=== PATIENT | female | born 1970 | race Caucasian/White ===

== ENCOUNTER 2016-11-14 09:39 | Emergency (ER) | payer BC ==
[~2016-11-14] VITALS: Ht 167.6 cm; Wt 90.1 kg
[~2016-11-14 09:39] MED LIST: ALBUTEROL SULF8.5 GM IH; HYDROCODON-ACE1 EAC7 PO; KEFLEX500 MG PO; LEVAQUIN500 MG PO; MEDROL DOSEPAK4 MG PO; MUCINEX PO; NAPROXEN500 MG PO; TUSSIONEX PENN473 ML PO
[2016-11-14] MEDS ORDERED: PREDNISONE10 MG PO (12:37)
[2016-11-14] MEDS ORDERED: ULTRAM50 MG PO (12:37)
[2016-11-14 12:49] VITALS: BP 124/78
== END 2016-11-14 12:45 | disposition home or self-care (01) ==
LOC: EME 09:39
DX: M17.12 Unilateral primary osteoarthritis, left knee (principal); Z85.820 Personal history of malignant melanoma of skin
CPT/HCPCS: 73564; 99281; 99284; J7512